=== PATIENT | male | born 1945 | race Caucasian/White ===

== ENCOUNTER 2017-04-18 05:39 | Inpatient (IN) | payer OTHER ==
[2017-04-18] MEDS ORDERED: LR 1,000 ML IV ONE (06:13)
[2017-04-18] MEDS ORDERED: LIDOCAINE 1% 2 ML INJ ID PRN (06:13)
[2017-04-18] MEDS ORDERED: BUPIVACAINE/EPI 0.25% 30 ML SDV ONE ×2 (06:44→06:48)
[2017-04-18] MEDS ORDERED: THROMBIN (BOVINE) 5,000 UNIT VIAL TP ONE (06:44)
[2017-04-18] MEDS ORDERED: BACITRACIN 50,000 UNITS/10 ML SYR IRR ONE (06:45)
[2017-04-18] MEDS ORDERED: ceFAZolin 2 GM/DEXTROSE 100 ML IV ONE (07:00)
--- NOTE | 2017-04-18 07:10 | PDHPUP ---
History & Physical Update H&P update statement: This history and physical update is based on an assessment of the patient which was completed after admission or registration (within 24 hours), but prior to the surgery/procedure. H&P update: H&P reviewed & patient examined, no change in patient's condition since H&P completed
[2017-04-18] MEDS ORDERED: MIDAZOLAM 2 MG/2 ML VIAL IVP ONE (07:20)
--- NOTE | 2017-04-18 07:22 | PDANEPAE ---
ANE Past Medical History - Cardiovascular History Hx Hypertension: No Hx Arrhythmias: No Hx Chest Pain: No Hx Coronary Artery / Peripheral Vascular Disease: No Hx CHF / Valvular Disease: No Hx Palpitations: No Cardiovascular History Comment: on Crestor - Pulmonary History Hx COPD: No Hx Asthma/Reactive Airway Disease: No Hx Recent Upper Respiratory Infection: No Hx Oxygen in Use at Home: No Hx Sleep Apnea: No Sleep Apnea Screening Result - Last Documented: Negative - Neurologic History Hx Cerebrovascular Accident: No Hx Seizures: No Hx Dementia: No - Endocrine History Hx Diabetes: No Hypothyroid: No Hyperthyroid: No Obesity: no - Renal History Hx Renal Disorders: No - Liver History Hx Hepatic Disorders: No - Neurological & Psychiatric Hx Hx Neurological and Psychiatric Disorders: Yes Neurological / Psychiatric History Comment: long hx of back and L leg pain. Past 3 yrs has used every modality:RFA,cryotherapy, opiods, gabapentin,etc. C/ O L hip (piriformis), thigh,nagel and foot pain. Sustained severe cramping in hamstring x 3 hrs. - Cancer History Hx Cancer: No - Congenital Disorder History Hx Congenital Disorders: No - GI History GERD: no Hx Gastrointestinal Disorders: No - Chronic Pain History Chronic Pain: Yes (back/L leg) - Surgical History Prior Surgeries: Ears:replaced stapes bilat ears. L4/L5 microdiscectomy. shoulder sx. umbilical hernia sx. umbilical hernia sx x2 w/mesh ANE Review of Systems - Exercise capacity METS (RN): 4 METS ANE Patient History - Allergies Allergies/Adverse Reactions: No Known Drug Allergies Allergy (Verified 04/16/17 10:04) - Home Medications Home Medications: Herbals/Supplements -Info Only 1 ea PO DAILY 04/15/17 [Last Taken 04/16/17] Rosuvastatin Calcium [Crestor] 10 mg PO HS 04/15/17 [Last Taken 04/16/17] - NPO status NPO Since - Liquids (Date): 04/17/17 NPO Since - Liquids (Time): 19:00 NPO Since - Solids (Date): 04/17/17 NPO Since - Solids (Time): 19:00 - Smoking Hx Smoking Status: Never smoked ANE Labs/Vital Signs - Vital Signs Blood Pressure: 119/80 Heart Rate: 75 Respiratory Rate: 18 O2 Sat (%): 93 Height: 182.88 cm Weight: 78.018 kg ANE Physical Exam - Airway Neck exam: FROM Mallampati Score: Class 2 Mouth exam: dentures - Pulmonary Pulmonary: no respiratory distress - Cardiovascular Cardiovascular: regular rate and rhythym - ASA Status ASA Status: II ANE Anesthesia Plan Anesthesia Plan: general endotracheal anesthesia
[2017-04-18] MEDS ORDERED: PROPOFOL/EMULSION 500 MG/50 ML BOTTLE IV ONE (07:29)
[2017-04-18] MEDS ORDERED: fentaNYL 100 MCG/2 ML INJ ONE ×5 (07:34→13:01)
[2017-04-18] MEDS ORDERED: LIDOCAINE 2% 5 ML SDV ONE (07:34)
[2017-04-18] MEDS ORDERED: REMIFENTANIL HCL 1 MG VIAL ONE ×3 (08:37→12:28)
[2017-04-18] MEDS ORDERED: epHEDrine SULFATE 10 MG/ML SYR ONE (09:35)
[2017-04-18] MEDS ORDERED: PHENYLEPHRINE HCL 100 MCG/ML SYR ONE (09:35)
[2017-04-18] MEDS ORDERED: ROCURONIUM 100 MG/10 ML VIAL ONE ×2 (09:35→09:36)
[2017-04-18] MEDS ORDERED: ONDANSETRON 4 MG/2 ML VIAL IVP PRN (13:11)
[2017-04-18] MEDS ORDERED: METHOCARBAMOL 750 MG TAB PO PRN (13:11)
[2017-04-18] MEDS ORDERED: BISACODYL 10 MG SUPP PR PRN (13:11)
[2017-04-18] MEDS ORDERED: ONDANSETRON DISINTEGRATING 4 MG TAB PO PRN (13:11)
[2017-04-18] MEDS ORDERED: diphenhydrAMINE 25 MG CAP PO PRN (13:11)
[2017-04-18] MEDS ORDERED: MAGNESIUM HYDROXIDE 30 ML UDCUP PO PRN (13:11)
[2017-04-18] MEDS ORDERED: LACTULOSE 20 GM/30 ML UDCUP PO PRN (13:11)
[2017-04-18] MEDS ORDERED: oxyCODONE IR 5 MG TAB PO PRN (13:11)
[2017-04-18] MEDS ORDERED: POLYETHYLENE GLYCOL 3350 17 GM PKT PO PRN (13:11)
[2017-04-18] MEDS ORDERED: NS 1,000 ML IV SCH (13:15)
[2017-04-18] MEDS ORDERED: NALOXONE HCL 0.4 MG/ML INJ IVP PRN ×2 (13:17→13:28)
[2017-04-18] MEDS ORDERED: morphINE PCA 30 MG/30 ML PCA IV PRN (13:17)
[2017-04-18] MEDS ORDERED: HYDROmorphONE/DILAUDID 1 MG/ML SYR IVP PRN (13:28)
[2017-04-18] MEDS ORDERED: fentaNYL 100 MCG/2 ML INJ IVP PRN (13:28)
[2017-04-18] MEDS ORDERED: LABETALOL HCL 50 MG/10 ML SYR IVP PRN (13:28)
[2017-04-18] MEDS ORDERED: LR 500 ML IV PRN (13:28)
[2017-04-18] MEDS ORDERED: PROMETHAZINE HCL 25 MG/ML INJ IVP PRN (13:28)
--- NOTE | 2017-04-18 13:28 | POSTANESTH ---
Post Anesthetic Evaluation Cardiovascular Status: Normal, Stable Respiratory Status: Normal, Stable Level of Consciousness/Mental Status: Can Participate in Eval Pain Control: Adequate, Prn Tx Ordered Nausea/Vomiting Control: Adequate, Prn Tx Ordered Complications Possibly Related to Anesthesia: None Noted
--- NOTE | 2017-04-18 13:35 | POSTOPPROG ---
Post Op Note Date of Operation: 04/18/17 Surgeon: Kvng Brown [place] Welter: Flores Gardner NP Anesthesia: GET(General Endotracheal) Pre-op Diagnosis: Lumbar Stenosis Procedure: L4-5, L5-S1 TLIF Inf/Abcess present in the surg proc area at time of surgery?: No Depth: Deep Incisional (Fascial) EBL: 100-500 Total fluids administered: see anesthesia Complications: none Drains: Yunior Reed Date of Surgery: 04/18/17 Post Op Day: 0 Assessment/Plan: 71 yr old s/p L4-5, L5-S1 TLIF Plan: -PT/OT -Wear brace when out of bed -REAL ESTATE CLERK ordered if needed -CRISTOPHER drain in place -Follow exam -Call neurosurgery with any questions/concerns Subjective: Patient waking up in PACU Objective: Waking up in PACU EOMI PERRLA BLE 5/5 BUE 5/5 Sensation intact to light touch BLE CRISTOPHER draining dressing CDI Appropriate Neuro Check Frequency Ordered: Yes
[2017-04-18] MEDS ORDERED: LABETALOL HCL 5 MG/ML 20 ML MDV ONE (13:36)
[2017-04-18] MEDS: ACETAMINOPHEN 500 MG TAB PO SCH ×2 (14:38→22:03)
[2017-04-18] MEDS: ceFAZolin 2 GM/DEXTROSE 100 ML IV SCH ×2 (14:41→22:03)
[2017-04-18] MEDS: morphINE SR 15 MG TAB PO SCH ×2 (15:25→19:55)
[2017-04-18 16:19] VITALS: RESP 16
--- NOTE | 2017-04-18 18:54 | GOP ---
[f rep st] OPERATIVE REPORT DATE OF OPERATION: 04/18/2017 SURGEON: Jonathan Brown MD NEUROSURGEON: Jonathan Brown MD. INSTRUCTOR DANCING: Flores Gardner NP. PREOPERATIVE DIAGNOSIS: Lumbar spondylosis. Lumbar spondylolisthesis L4-5. Severe left lumbosacra l radiculopathy. Lumbar degenerative disk disease L2-3, L4-5, L5-S1. POSTOPERATIVE DIAGNOSIS: Lumbar spondylosis. Lumbar spondylolisthesis L4-5. Severe left lumbosacr al radiculopathy. Lumbar degenerative disk disease L2-3, L4-5, L5-S1. PROCEDURE PERFORMED: Posterolateral and intervertebral arthrodesis with bilateral decompressions at L4-5, L5-S1 ([id number], [id number]), placement of biomechanical intervertebral device L4-5, L5-S1 ([id number] x2) , posterior segmental instrumentation across the L4-5, L5-S1 interspaces (53902), same incision bone graft harvest, microscope, spinal stereotaxy for placement of pedicle screws, same incision bone gr aft harvest. FINDINGS: INDICATIONS: The patient is a mature male with a terrible left lumbosacral radiculopathy for severa l months, had progressed to the point where he is really having unbearable pain. He is successfully managed by Dr. Chapa, with interventional treatments for a period, but they simply did not give las ting relief and he desired to have surgery. He was completely miserable when I saw him in office an d we put him on the surgery schedule right away. His MRI demonstrated spondylolisthesis at L4-5. P rior surgery on the left at L5-S1 and he had degenerative disk disease at L5-S1 and bilateral forami nal stenosis at L4-5, 5-1 and also degenerative disc findings at L2-3. They were significant but I did not feel that these were related to his lumbosacral radiculopathy. He wanted to proceed with chino rgery despite the known risks, including the risk of pseudoarthrosis, adjacent segment disease, need for future surgery, the possibility that future may fail to eliminate his pain. He understood ther e was risk of CSF leak, nerve injury, and he wanted to proceed despite these risks. He knew there w as risk of hardware failure, malposition and malfunction. DESCRIPTION OF PROCEDURE: The patient was taken to the operating room, placed in the supine positio n. General anesthesia was begun. He was flipped prone onto the Yunior table. Care was taken to p ad all points of contact. His back was sterilely prepped and draped by the surgeon. A localizing x -ray was taken. We opened his prior incision at L5-S1. It measured about 2 cm in length and extend ed it rostrally and caudally just slightly. The total incision length was about 8.5 to 9 cm. The s ubcutaneous tissue was dissected using Bovie cautery down through the fascia and a subperiosteal dis section was made down the L4-5, 5-1 lamina. A self-retaining retractor was placed. We denuded the bilateral L4-5, L5-S1 facet joints for our posterolateral arthrodesis. We marked our pedicle screw entry sites for the screws and performed an O-arm spin. Using frameless Stealth stereotaxy, placed pedicle screws bilaterally at L4-5 in the sacrum. They all stimulated at acceptable levels. An O-a rm spin was made and the screws were all in excellent position. We then took a 60 mm mynor placed on each side. Distract between L4-5, L5-S1 and reduced much of the spondylolisthesis at L4-5. We then removed all the soft tissue of the bone from the 4-5, 5-1 lamina and then harvested the L5 spinous process and the inferior L4 spinous process for autologous grafting purposes. We drilled bilateral laminectomies at L4-5, 5-1. On the left at L5-S1 there was prior laminotomy defect and we still thi nned out the bony lamina significantly on the left-hand side. Operating microscope was introduced. We opened the thecal sac at L5-S1, and decompressed the right-hand side. Worked our way up to the right 4-5 side, then worked our way to the left 4-5 side and then worked our way down to L5-S1. We followed the L5 root out into its neural foramen and completely thinned the L5 lamina over the L5-S1 lateral recess and this lamina was completely stuck to the dura, could not be from the du ra. We freed it from its attachment to the pars interarticularis and the pedicle and now was simply a free-floating piece of bone sitting on top of the thecal sac. The L5 root was identified adjacen t to its pedicle and was decompressed all the way onto the L5-S1 foramen. We completely removed the SAP of L5 and the sacrum and the IAP of L4 and L5 and decompressed the exiting left-sided L4 and L5 nerve roots completely. We were able to mobilize the S1 root adjacent to the S1 pedicle, to allow access to the intervertebral space and we had good mobilization at L4-5, where there was not scar pr esent. We began by sweeping the L5 nerve root medially, incised the L4-5 disk, removed the disk and the cartilaginous endplates. We roughened the subchondral bone to create arthrodesis at that level . We then went to L5-S1 where the disk was very degenerative, but we used a scalpel blade to enter the disk and then cleaned this disk space out. There was considerably less room here but we were ab le to ream to an 8 mm reamer. We removed the cartilaginous endplates and decorticated the subchondr al bone to create arthrodesis at that level as well. We used trials to size the L4-5 and L5-S1 inte rspaces and ultimately chose an 8 x 28 mm for 4-5 and a 7 x 28 for 5-1. These were inserted under f luoroscopic guidance and once we were happy with the position of the devices they were expanded into lordotic position. We then allowed some relaxation of the L4 tulips to create greater lordosis at the L4-5 level. We decorticated all remaining bone posterolaterally. We placed bone autograft and BMP into the disk space. We used a total of 1 mg of BMP in the disk spaces and 1 mg posterolaterall y bilaterally divided, the total dosage of BMP used on the case was 2.0 mg. We placed a large amoun t of bony autograft posterolaterally from L4 to the sacrum, and it was firmly packed posterolaterall y. Placed a subfascial drain. We final tightened all the cap screws and the tulips according to co mpany specification, and then passed the drain inferiorly. We then closed the incision in multiple layers using Vicryl sutures. A running PDS was not necessary in the skin itself. We then Steri-Str iped the incision. The patient was reversed from anesthesia, extubated, and transferred to the [facility] very room in stable condition. COMPLICATIONS: None. INSTRUMENTATION USED: The Other Guysa 5.5 mm system and we used a 7 x 28 and an 8 x 28 mm elevate intervertebral device at L4-5, L5-S1. /[id number]/MODL
[2017-04-18] MEDS: FAMOTIDINE 20 MG TAB PO SCH (19:55)
[2017-04-18] MEDS: SENNOSIDES/DOCUSATE SODIUM TAB PO SCH (19:55)
[2017-04-19 05:04] LABS: % IMMATURE GRANULYOCYTES 0.4 % (0.0-1.1); ABSOLUTE IMMATURE GRANULOCYTES 0.04 10^3/uL (0.00-0.10); ADD DIFF? NO; ADD MORPH? NO; ADD SCAN? NO; ATYPICAL LYMPHOCYTE FLAG 0 (0-99); FRAGMENT RBC FLAG 0 (0-99); HEMATOCRIT 37.1 % (40.0-51.0); LEFT SHIFT FLG 0 (0-99); LIPEMIA HEMOLYSIS FLAG 90 (0-99); MEAN CELL HEMOGLOBIN 32.8 pg (27.9-34.1); MEAN CELL VOLUME 93.7 fL (81.5-99.8); MEAN PLATELET VOLUME 10.2 fL (8.7-11.7); PLATELET CLUMPS FLAG 0 (0-99); PLATELET COUNT 108 10^3/uL (150-400); RED BLOOD CELL COUNT 3.96 10^6/uL (4.40-6.38); RED CELL DISTRIBUTION WIDTH 13.1 % (11.5-15.2)
[2017-04-19 05:23] LABS: ANION GAP 10 mEq/L (8-16); CALCIUM 8.5 mg/dL (8.5-10.4); CARBON DIOXIDE 22 mEq/l (22-31); CHLORIDE 105 mEq/L (97-110); CREATININE 0.8 mg/dL (0.7-1.3); GLOMERULAR FILTRATION RATE > 60; GLUCOSE 129 mg/dL (70-100); SODIUM 137 mEq/L (134-144)
[2017-04-19] MEDS: ACETAMINOPHEN 500 MG TAB PO SCH ×3 (05:25→20:48)
[2017-04-19] MEDS: morphINE SR 15 MG TAB PO SCH ×2 (09:38→20:49)
[2017-04-19] MEDS: FAMOTIDINE 20 MG TAB PO SCH ×2 (09:41→20:49)
[2017-04-19] MEDS: SENNOSIDES/DOCUSATE SODIUM TAB PO SCH ×2 (09:42→20:49)
--- NOTE | 2017-04-19 12:22 | SOAPPROG ---
SOAP Progress Note Assessment/Plan: Assessment: 71 yo M POD #1 L4-S1 TLIF Plan: neuro: stable PT/OT post op x-rays look great scd/subhash/lovenox for dvt prophylaxis please call with neuro changes discussed with Dr Porras 04/19/17 12:19 Subjective: continued back pain, no leg pain, no weakness. Objective: Vital Signs Temp Pulse Resp BP Pulse Ox 37.0 C 86 16 115/69 94 04/19/17 11:56 04/19/17 11:56 04/19/17 11:56 04/19/17 11:56 04/19/17 11:56 Laboratory Results 04/19/17 04:15 04/19/17 04:15 04/18/17 04/19/17 04/20/17 05:59 05:59 05:59 Intake Total 1075 Output Total 1385 385 Balance -310 -385 AAOX4, +FC PERRL, EOMI, no facial droop 5/5 + light touch C/D/I ICD10 Worksheet Patient Problems: Problems Problem Status Onset Fusion of spine of lumbar region Acute - ICD10 Problem Qualifiers (1) Fusion of spine of lumbar region
[2017-04-19] MEDS ORDERED: ROSUVASTATIN CALCIUM 10 MG TAB PO SCH (21:00)
[2017-04-20] MEDS: ACETAMINOPHEN 500 MG TAB PO SCH (05:03)
[2017-04-20 07:12] VITALS: BP 107/66; PULSE 82; TEMP 97.9; O2SAT 93
[2017-04-20] MEDS: SENNOSIDES/DOCUSATE SODIUM TAB PO SCH (07:59)
[2017-04-20] MEDS: FAMOTIDINE 20 MG TAB PO SCH (07:59)
[2017-04-20] MEDS: morphINE SR 15 MG TAB PO SCH (10:59)
--- NOTE | 2017-04-20 12:23 | SOAPPROG ---
SOAP Progress Note Assessment/Plan: Assessment: 71 yo M POD #2 L4-S1 TLIF Plan: neuro: stable PT/OT post op x-rays look great scd/subhash/lovenox for dvt prophylaxis dc home today remove delvin today please call with neuro changes discussed with Dr Porras 04/19/17 12:19 04/20/17 12:22 Subjective: continued back pain, no leg pain, no weakness Objective: Vital Signs Temp Pulse Resp BP Pulse Ox 36.6 C 82 16 107/66 93 04/20/17 07:12 04/20/17 07:12 04/20/17 07:12 04/20/17 07:12 04/20/17 07:12 Laboratory Results 04/19/17 04:15 04/19/17 04:15 04/19/17 04/20/17 04/21/17 05:59 05:59 05:59 Intake Total 1075 600 Output Total 1385 740 Balance -310 -140 AAOx4, +FC PERRL, EOMI, no facial droop 5/5 + light touch C/D/I ICD10 Worksheet Patient Problems: Problems Problem Status Onset Fusion of spine of lumbar region Acute - ICD10 Problem Qualifiers (1) Fusion of spine of lumbar region
[2017-04-21] MEDS ORDERED: ENOXAPARIN 40 MG/0.4 ML SYR SC SCH (09:00)
== END 2017-04-20 13:20 | disposition home or self-care (01) | DRG 460 ==
LOC: F3N 05:39
PROVIDERS: ADMIT Neurological Surgery; ATTEND Neurological Surgery
PROC: 01NB0ZZ Release Lumbar Nerve, Open Approach (ICD-10-PCS; principal; 2017-04-18 07:30)
PROC: 00NY0ZZ Release Lumbar Spinal Cord, Open Approach (ICD-10-PCS; principal; 2017-04-18 07:30)
PROC: 4A1004G Monitoring of Central Nervous Electrical Activity, Intraoperative, Open Approach (ICD-10-PCS; principal; 2017-04-18 07:30)
PROC: 0SG30AJ Fusion of Lumbosacral Joint with Interbody Fusion Device, Posterior Approach, Anterior Column, Open Approach (ICD-10-PCS; principal; 2017-04-18 07:30)
PROC: 0SG00AJ Fusion of Lumbar Vertebral Joint with Interbody Fusion Device, Posterior Approach, Anterior Column, Open Approach (ICD-10-PCS; principal; 2017-04-18 07:30)
DX: M47.896 Other spondylosis, lumbar region (principal); M43.16 Spondylolisthesis, lumbar region; M51.36 Other intervertebral disc degeneration, lumbar region; M51.37 Other intervertebral disc degeneration, lumbosacral region; M54.17 Radiculopathy, lumbosacral region
CPT/HCPCS: 97161-GP; 97165-GO; G8978-GP-CI; G8979-GP-CI; G8980-GP-CI; G8987-GO-CI; G8988-GO-CI; G8989-GO-CI; J0690; J2250; J2370; J2704; J3010; J3490

== ENCOUNTER → 2017-06-18 | Outpatient (CLI) | payer OTHER | LOC: FIMAGING 16:03 | PROVIDERS: ATTEND Neurological Surgery | DX: Z09 Encounter for follow-up examination after completed treatment for conditions other than malignant neoplasm (principal); Z98.1 Arthrodesis status ==